=== PATIENT | female | born 1990 | race Caucasian/White ===

== ENCOUNTER 2021-02-19 11:26 | Emergency (ER) | payer OTHER, SELFPAY ==
[2021-02-19 11:35] VITALS: BP 157/103; PULSE 72; RESP 16; TEMP 36.6; O2SAT 100
--- NOTE | 2021-02-19 11:48 | ED.SKABFB ---
HPI - Skin/Abscess/Foreign Bdy General Chief complaint: Skin/Abscess/Foreign Body Stated complaint: rash Time Seen by Provider: 02/19/21 11:39 Source: patient and RN notes reviewed Mode of arrival: ambulatory Limitations: no limitations History of Present Illness HPI narrative: Patient presents today complaining of hives since yesterday morning. Patient woke up at times, took Benadryl and then went away. She woke up again this morning at 1:00 and had them and they have been worsening since that time. She took another dose of Benadryl today. Denies shortness of breath or difficulty swallowing. 5 days ago, patient started on Colestid for her IBS-D as well as omeprazole for GERD. Other than this, she has had no new changes in her products at home. MD complaint: rash Related Data Home Medications Medication Instructions Recorded Confirmed colestipol PO 02/19/21 omeprazole 02/19/21 Allergies Allergy/AdvReac Type Severity Reaction Status Date / Time No Known Allergies Allergy Uncoded 03/25/19 08:32 Review of Systems Review of Systems: CONSTITUTIONAL: Denies body aches, fever, chills, or sweats. EYES: Denies visual changes, redness, or discharge. ENT: Denies rhinorrhea, congestion, sore throat, or otalgia. CARDIOVASCULAR: Denies chest pain, palpitations, or edema. RESPIRATORY: Denies cough or dyspnea. GASTROINTESTINAL: Denies abdominal pain, nausea, vomiting, or diarrhea. GENITOURINARY: Denies dysuria or hematuria. SKIN: Pruritic rash MUSCULOSKELETAL: Denies back pain, joint pain, or myalgia. NEUROLOGIC: Denies headache, numbness, tingling, or weakness. PSYCH: Denies depression or anxiety. [facility] Past Medical History Medical History (Updated 02/19/21 @ 11:53 by Addie Hitchcock, [facility], ) GERD (gastroesophageal reflux disease) Irritable bowel syndrome Comments At time of signature, I have reviewed and agree with nursing past medical, surgical, social and family history unless otherwise noted. Please see nursing chart for further information. There is no relevant family history pertinent to the presenting complaint Exam Narrative: GENERAL: Well-appearing, well-nourished, and in no acute distress. HEAD: Normocephalic, atraumatic. EYES: EOMI. No redness or drainage. Conjunctivae normal. ENT: Mucous membranes pink and moist. Throat normal. Uvula midline. NECK: Normal AROM. Supple. No lymphadenopathy. CHEST: No respiratory distress. Clear to auscultation. HEART: Regular rate and rhythm. No murmur appreciated. Normal peripheral pulses. EXTREMITIES: Normal range of motion. No edema. SKIN: Warm, dry. Capillary refill normal. Normal skin turgor. Urticarial rash to bilateral legs, arms, back NEURO: No focal deficits. Alert and oriented x3. Gait steady. PSYCH: Normal affect. No signs of depression or anxiety. Course Vital Signs Vital signs: Vital Signs Temperature 98 F 02/19/21 11:35 Pulse Rate 72 02/19/21 11:35 Respiratory Rate 16 02/19/21 11:35 Blood Pressure 157/103 H 02/19/21 11:35 Pulse Oximetry 100 02/19/21 11:35 Temperature 98 F 02/19/21 11:35 Pulse Rate 72 02/19/21 11:35 Respiratory Rate 16 02/19/21 11:35 Blood Pressure 157/103 H 02/19/21 11:35 Pulse Oximetry 100 02/19/21 11:35 Reviewed. Pt has been instructed to follow up with her PCP regarding her elevated blood pressure today. MDM - Skin/Abscess/Foreign Bdy Differential Diagnosis Differential diagnosis: Likely abscess of skin or subcutaneous tissue, urticaria, allergic reaction to drug, eczema, insect bites and contact dermatitis Critical Care Time Critical Care Time Critical Care Time: No Discharge Plan Discharge Clinical Impression: Allergic reaction to drug Qualifiers: Encounter type: initial encounter Qualified Code(s): T78.40XA - Allergy, unspecified, initial encounter Patient Disposition: Home, Self-Care Condition: Stable Instructions: Dermatitis (ED) Additional Instructions:
== END 2021-02-19 11:58 | disposition home or self-care (01) ==
PROVIDERS: Emergency Provider Nurse Practitioner; PCP Family Medicine
DX: T78.40XA Allergy, unspecified, initial encounter (principal); K21.9 Gastro-esophageal reflux disease without esophagitis
CPT/HCPCS: 99213; G0463

== ENCOUNTER 2022-01-11 18:25 | Emergency (ER) | payer OTHER, SELFPAY ==
[2022-01-11 18:32] VITALS: BP 173/104; PULSE 96; RESP 16; TEMP 37.1; O2SAT 98
--- NOTE | 2022-01-11 18:45 | ED.GENADULT ---
HPI - General Adult General Chief complaint: Skin/Abscess/Foreign Body Stated complaint: bump on right side of face Time Seen by Provider: 01/11/22 18:45 Source: patient, RN notes reviewed and old records reviewed Mode of arrival: ambulatory Limitations: no limitations History of Present Illness HPI narrative: 31 year old female presents to [facility] with complaint of swelling to the right side of her face on Saturday with area increasingly swollen and painful. Patient reports that she saw dentist today and was told that she had no dental issues causing her swelling and pain. Patient states history of some right ear problems but no evidence of otitis media or externa noted. Patient denies any difficulty with her breathing or with swallowing with no Aditya angina or trismus noted.Patient denies any fevers, chills or sweats. MD complaint: swelling and pain to right side of face and upper cheek Treatments prior to arrival: NSAID and other (Tylenol) Related Data Home Medications Medication Instructions Recorded Confirmed clonazepam 0.5 mg tablet 0.5 mg PO DAILY 01/11/22 01/11/22 fluoxetine 20 mg capsule 20 mg PO DAILY 01/11/22 01/11/22 omeprazole 40 mg capsule,delayed 40 mg PO DAILY 01/11/22 01/11/22 release Allergies Allergy/AdvReac Type Severity Reaction Status Date / Time No Known Allergies Allergy Verified 01/11/22 18:38 Review of Systems Review of Systems: CONSTITUTIONAL: Denies fever, chills, or sweats. EYES: Denies visual changes, redness, or discharge. ENT: Denies rhinorrhea, congestion, sore throat, or otalgia. Positive for swelling to right face and upper cheek with pain CARDIOVASCULAR: Denies chest pain, palpitations, or edema. RESPIRATORY: Denies cough or dyspnea. Denies any difficulty with swallowing GASTROINTESTINAL: Denies abdominal pain, nausea, vomiting, or diarrhea. GENITOURINARY: Denies dysuria or hematuria. SKIN: Denies rash or itching. MUSCULOSKELETAL: Denies back pain, joint pain, or myalgia. NEUROLOGIC: Denies headache, numbness, or weakness. PSYCHIATRIC: Positive history of anxiety or depression. All systems reviewed & are unremarkable except as noted in HPI and below [facility] Past Medical History Medical History (Updated 01/11/22 @ 19:37 by Alayna Ley NP) Anxiety and depression Fatty liver GERD (gastroesophageal reflux disease) Hearing loss in right ear Irritable bowel syndrome Surgical History Surgical History (Updated 01/11/22 @ 19:33 by Alayna Ley NP) History of ear surgery right Social History Social History (Updated 01/11/22 @ 18:48 by Alayna Ley NP) Smoking status: Never smoker Alcohol intake: current Alcohol use details: ? Substance use type: does not use Living arrangements: with family Gender identity (if verbalized by the patient): Female Comments At time of signature, agree with nursing past medical, surgical, social and family history. There is no relevant family history pertinent to the presenting complaint Exam Narrative: GENERAL: Well-appearing, well-nourished, and in no acute distress. HEAD: Normocephalic, atraumatic. EYES: PERRLA and EOMI. ENT: Nares clear, no rhinorrhea or epistaxis. Mucous membranes moist.TM's normal with good light reflex, some scar tissue noted. throat pink with no lesions exudates or swelling, right side of face and upper cheek swollen and painful, some firmness of tissue noted, no difficulty with swallowing , no Aditya angina or trismus noted. NECK: Supple.no lymphadenopathy CHEST: Clear to auscultation. No respiratory distress.SAO2 98% on room air HEART: Regular rate and rhythm. No murmur heard. Normal peripheral pulses. ABDOMEN: Soft, nontender, nondistended, normal active bowel sounds. EXTREMITIES: Normal range of motion. No edema. SKIN: Warm, dry, no rash. NEURO: No focal deficits. Alert and oriented x3. Course Course Level of Care: Express Care Visit Vital Signs Vital signs: Vital Signs
[2022-01-11 19:20] VITALS: BP 140/90
== END 2022-01-11 19:20 | disposition home or self-care (01) ==
PROVIDERS: Emergency Provider Registered Nurse; PCP Family Medicine
DX: K11.21 Acute sialoadenitis (principal); K21.9 Gastro-esophageal reflux disease without esophagitis; K76.0 Fatty (change of) liver, not elsewhere classified; F41.9 Anxiety disorder, unspecified; F32.A Depression, unspecified
CPT/HCPCS: 99213; G0463

== ENCOUNTER 2022-01-16 16:40 | Emergency (ER) | payer OTHER, SELFPAY ==
[2022-01-16 16:51] VITALS: BP 161/91; PULSE 84; RESP 20; TEMP 36.8; O2SAT 99
--- NOTE | 2022-01-16 17:33 | ED.GENADULT ---
HPI - General Adult General Chief complaint: Ear Stated complaint: Pain in right ear and throat Source: patient Mode of arrival: ambulatory Limitations: no limitations History of Present Illness HPI narrative: Patient presents for evaluation of right-sided ear pain. She was seen at [facility] on 01/11/2022 with reports of right-sided facial swelling. She seen her dentist prior to that presentation was told that it was not related to any abnormalities related to her teeth. She was diagnosed with sialoadenitis was given prescriptions for Augmentin and prednisone. She has been taking these as directed. Swelling and pain in the right side of her face are markedly improved. Two days ago she noted pain in her right ear. She has chronic hearing problems and has hearing aids. She is not wearing them today. She states she was seen by her equity structurer about one month ago and was told that her hearing in her right ear has markedly declined. She is trying to get in to see ENT but does not have an appt until next month. She states she has a hx of tympanostomy tubes and tympanoplasty. She developed a sore throat around same time as right sided ear pain. Fever, chills, shortness of breath, trismus, problems handling secretions. She is taking tylenol and ibuprofen for her symptoms. She has also been sucking on lemonhead candy. No additional complaints or concerns. Related Data Home Medications Medication Instructions Recorded Confirmed clonazepam 0.5 mg tablet 0.5 mg PO DAILY 01/11/22 01/16/22 fluoxetine 20 mg capsule 20 mg PO DAILY 01/11/22 01/16/22 omeprazole 40 mg capsule,delayed 40 mg PO DAILY 01/11/22 01/16/22 release Allergies Allergy/AdvReac Type Severity Reaction Status Date / Time No Known Allergies Allergy Verified 01/16/22 16:59 Review of Systems Review of Systems: CONSTITUTIONAL: Denies fever, chills, or sweats. EYES: Denies visual changes, redness, or discharge. ENT:Reports sore throat and right sided ear pain. Reports chronic hearing impairments with worsening hearing in right ear in the past month. CARDIOVASCULAR: Denies chest pain, palpitations, or edema. RESPIRATORY: Denies cough or dyspnea. GASTROINTESTINAL: Denies abdominal pain, nausea, vomiting, or diarrhea. GENITOURINARY: Denies dysuria or hematuria. SKIN: Denies rash or itching. MUSCULOSKELETAL: Denies back pain, joint pain, or myalgia. NEUROLOGIC: Denies headache, numbness, dizziness, or weakness. PSYCHIATRIC: Denies anxiety or depression. [facility] Past Medical History Medical History Anxiety and depression Fatty liver GERD (gastroesophageal reflux disease) Hearing impairment Hearing loss in right ear Irritable bowel syndrome Surgical History Surgical History History of ear surgery right History of tympanoplasty History of tympanostomy tube placement Family History Family History Mother Family history non-contributory Social History Social History Smoking status: Never smoker Alcohol intake: current Alcohol use details: ? Substance use type: does not use Gender identity (if verbalized by the patient): Female Exam Narrative: GENERAL: Well-appearing, well-nourished, and in no acute distress. HEAD: Normocephalic, atraumatic. EYES: PERRLA and EOMI. ENT: Nares clear, no rhinorrhea or epistaxis. Mucous membranes moist. Oropharynx without tonsillar hypertrophy exudate or other lesions. There is mild erythema and scarring noted to bilateral eardrums NECK: Supple without any swelling CHEST: Clear to auscultation. No respiratory distress. No wheezes rales or rhonchi HEART: Regular rate and rhythm. No murmur heard. Normal peripheral pulses. ABDOMEN: Soft, nontender, nondistended, normal
== END 2022-01-16 17:37 | disposition home or self-care (01) ==
PROVIDERS: Emergency Provider Nurse Practitioner; PCP Family Medicine
DX: H92.01 Otalgia, right ear (principal); J02.9 Acute pharyngitis, unspecified; F41.9 Anxiety disorder, unspecified; F32.A Depression, unspecified; K21.9 Gastro-esophageal reflux disease without esophagitis; K76.0 Fatty (change of) liver, not elsewhere classified
CPT/HCPCS: 99213; G0463

== ENCOUNTER 2023-05-13 08:27 | Emergency (ER) | payer OTHER, SELFPAY ==
[2023-05-13 08:34] VITALS: BP 154/97; PULSE 99; RESP 20; TEMP 36.8; O2SAT 97
--- NOTE | 2023-05-13 08:54 | ED.EAR ---
HPI - Ear Problem General Chief complaint: Ear Stated complaint: Right Ear Pain Time Seen by Provider: 05/13/23 08:58 Source: patient and RN notes reviewed Mode of arrival: ambulatory Limitations: no limitations History of Present Illness HPI Narrative: 33-year-old female presents concern for right ear pain started yesterday. She reports a history of ear infections. She reports chronic sinus problems. She reports she has a tympanostomy tube. She has not noticed any drainage from the ear. MD Complaint: ear pain Related Data Home Medications Medication Instructions Recorded Confirmed clonazepam 0.5 mg tablet 0.5 mg PO DAILY 01/11/22 05/13/23 fluoxetine 20 mg capsule 20 mg PO DAILY 01/11/22 05/13/23 omeprazole 40 mg capsule,delayed 40 mg PO DAILY 01/11/22 05/13/23 release Allergies Allergy/AdvReac Type Severity Reaction Status Date / Time No Known Allergies Allergy Verified 05/13/23 08:42 Review of Systems Review of Systems: CONSTITUTIONAL: Denies malaise, chills, sweats, or fever. EYES: Denies visual changes, redness, or discharge. ENT: Reports chronic rhinorrhea, congestion. Reports right ear pain CARDIOVASCULAR: Denies chest pain, palpitations, or edema. RESPIRATORY: Denies cough. Denies dyspnea. GASTROINTESTINAL: Denies abdominal pain, nausea, vomiting, diarrhea SKIN: Denies rash or itching. MUSCULOSKELETAL: Denies myalgia. NEUROLOGIC: Denies headache. All systems reviewed & are unremarkable except as noted in HPI and below [facility] Past Medical History Medical History (Updated 05/13/23 @ 09:07 by Kaylah Covarrubias NP) Anxiety and depression Fatty liver GERD (gastroesophageal reflux disease) Hearing impairment Hearing loss in right ear Irritable bowel syndrome Surgical History Surgical History History of ear surgery right History of tympanoplasty History of tympanostomy tube placement Family History Family History Mother Family history non-contributory Social History Social History Smoking status: Never smoker Alcohol intake: current Alcohol use details: ? Substance use type: does not use Living arrangements: with family Gender identity (if verbalized by the patient): Female Comments At time of signature, agree with nursing past medical, surgical, social and family history. There is no relevant family history pertinent to the presenting complaint Exam Narrative: GENERAL: Well-appearing, well-nourished, and in no acute distress. HEAD: Normocephalic EYES: PERRLA, conjunctivae clear ENT: Nares clear, turbinates edematous, clear discharge. Mucous membranes moist. Left TM pearly dominguez with dull light reflex, right TM erythematous and bulging with intact tympanostomy tube noted without drainage; no tragal tenderness. NECK: Supple. No lymphadenopathy CHEST: Clear to auscultation, breath sounds equal. No wheezing, rhonchi, rales, or stridor. No respiratory distress, speaks in full sentences. HEART: Regular rate and rhythm. No murmur heard. SKIN: Warm, dry, no rash. NEURO: Alert and oriented x3. PSYCH: Normal mood and affect Course Course Emergency Course: Patient is aware of diagnosis, understands and agrees to treatment plan. Anticipatory guidance given. Patient agrees to follow-up as directed and is aware of reasons to seek care at the emergency department. Portions of this record may have been created with voice recognition software Level of Care: Express Care Visit Vital Signs Vital signs: Vital Signs Temperature 98.2 F 05/13/23 08:34 Pulse Rate 99 05/13/23 08:34 Respiratory Rate 20 05/13/23 08:34 Blood Pressure 154/97 H 05/13/23 08:34 Pulse Oximetry 97 05/13/23 08:34 Oxygen Delivery Room Air 05/13/23 08:34 Temperature 98.2 F 05/13/23 08:34 Pulse Rate
== END 2023-05-13 09:16 | disposition home or self-care (01) ==
PROVIDERS: Emergency Provider Nurse Practitioner; PCP Family Medicine
DX: H66.91 Otitis media, unspecified, right ear (principal); Z79.899 Other long term (current) drug therapy
CPT/HCPCS: 99213; G0463

== ENCOUNTER 2024-12-19 10:12 | Emergency (ER) | payer OTHER, SELFPAY ==
--- OUTSIDE RECORDS SUMMARY | 2024-12-19 10:14 | XMS_ITS | Clinical Summary ---
Author Organization [address] Address [address] [place] [id number] Care Team Providers Care Turnaround Engineer Name Role Phone Blaine Villarreal MD Primary Care Provid er Allergies Active Allergy Reactions Criticality Noted Date Comments Colestipol Hives Medium 03/03/2021 Dairy - All Forms And Ingredients Diarrhea,Hives Medium 08/07/2021 Shellfish Containing Products Diarrhea,Hives Medium Medications blood-glucose meter (OneTouch Verio Flex meter) miscIndication s:Inadequately controlled diabetes mellitus (HCC) Test blood sugar daily to twice daily 1 each 02/28/20 24 Active blood glucose diagnostic (glucose blood) stripIndicatio ns:Inadequatel y controlled diabetes mellitus (HCC) Test blood sugar daily to twice daily 100 each 02/28/20 24 025 Active lancets miscIndication s:Inadequately controlled diabetes mellitus (HCC) Test blood sugar daily to twice daily 100 each 02/28/20 24 Active alcohol swabs pads, medicatedIndic ations:Inadequ ately controlled diabetes mellitus (HCC) Test blood sugar daily to twice daily 100 each 02/28/20 24 Active OneTouch Delica Plus Lancet 33 gauge misc USE TO TEST BLOOD SUGAR DAILY TO TWICE DAILY 04/10/20 24 Active gabapentin (NEURONTIN) 300 mg capsule Take 1 capsule (300 mg total) by mouth 3 (three) times a day 90 capsule 5 08/25/19 25 025 Active traZODone (DESYREL) 50 mg tabletIndicati ons:Other insomnia TAKE 1 TO 2 TABLETS(50 TO 100 MG) BY MOUTH EVERY NIGHT NEEDED FOR SLEEP 60 tablet 5 08/26/19 25 Active clonazePAM (KlonoPIN) 0.5 mg tabletIndicati ons:Generalize d anxiety disorder with panic attacks TAKE 1/2 TO 1 TABLET(0.25 TO 0.5 MG) BY MOUTH TWICE DAILY NEEDED FOR ANXIETY 30 tablet 09/01/19 25 Active albuterol HFA (PROVENTIL HFA,VENTOLIN HFA,PROAIR HFA) 90 mcg/actuation inhalerIndicat ions:Shortness of breath Inhale 2 puffs every 4 (four) hours as needed for wheezing or shortness of breath 1 each 10/01/19 25 Active FLUoxetine (PROzac) 40 mg capsuleIndicat ions:Generaliz ed anxiety disorder with panic attacks TAKE 1 CAPSULE(40 MG) BY MOUTH DAILY 90 capsule 10/06/19 25 Active semaglutide (Ozempic) 1 mg/dose (4 mg/3 mL) pen injector injectionIndic ations:Inadequ ately controlled diabetes mellitus (HCC) Inject 1 mg under the skin once a week 3 mL 2 10/13/19 25 Active medroxyPROGEST ERone (PROVERA) 10 mg tablet Take 1 tablet (10 mg total) by mouth daily 10 tablet 11 10/20/19 25 Active naproxen (NAPROSYN) 500 mg tablet Take 1 tablet (500 mg total) by mouth 2 (two) times a day as needed for pain (pain) 30 tablet 11/21/19 25 Active cyclobenzaprin e (FLEXERIL) 10 mg tablet Take 1 tablet (10 mg total) by mouth 2 (two) times a day as needed for muscle spasms 60 tablet 11/21/19 25 Active carbidopa-levo dopa (SINEMET) 25-100 mg per tabletIndicati ons:Restless legs syndrome TAKE 1 TABLET BY MOUTH EVERY NIGHT 30 tablet 2 12/01/19 25 Active carbidopa-levo dopa (SINEMET) 25-100 mg per tabletIndicati ons:Restless legs syndrome TAKE 1 TABLET BY MOUTH EVERY NIGHT 30 tablet 5 05/18/20 24 025 Discontinued amoxicillin-cl avulanate (AUGMENTIN) 875-125 mg per tablet Take 1 tablet by mouth 2 (two) times a day for 10 days 20 tablet 11/21/19 25 025 Active Problems Problem Noted Date Diagnosed Date Snoring 07/16/2023 Assessment & Plan (07/16/2023 9:13 AM FILM WRITER): The patient presents with snoring and excessive daytime hypersomnia. I have recommended proceeding with a nocturnal polysomnogram with a split night protocol if necessary and no MSLT. She will follow up here in 3 months. Epistaxis 06/21/2023 Chronic tympanomastoiditis, right 06/19/2022 Generalized abdominal pain 05/07/2022 Assessment & Plan (05/07/2022 1:04 PM FILM WRITER): Lower abdominal pain for the past 5-6 years, getting progressively worse, weekly, sometimes sharp other times dull, improves with BM, lasts for hours, associated with diarrhea. EGD and colonoscopy [place] [address] Sahu as above. Was diagnosed with IBS. Patient here for 2nd opinion. -avoid NSAIDs -continue PPI daily -schedule EGD -The risks (risks of bleeding, infection, perforation requiring surgery, missed polyps/cancer, dental injury, aspiration pneumonia, anesthesia complications such as drug reaction and cardiopulmonary complications including rare chance of ), benefits, and alternatives of the planned procedure were explained to the patient who understands and consents to having procedure done. Diarrhea 05/07/2022 Assessment & Plan (05/07/2022 1:01 PM FILM WRITER): Has over 10 BM/day, mainly in the mornings. Tried low FODMAP diet, states made bloating worse. Trial of probiotics, not sure if it helped. Colonoscopy [address] Sahu as above. SIBO testing negative in November of 2021. -we will order labs and stool studies for further evaluation -we will repeat colonoscopy to evaluate terminal ileum -obtain prior GI records Gastroesophageal reflux disease without esophagi tis 05/07/2022 Assessment & Plan (05/07/2022 1:02 PM FILM WRITER): Chronic heartburn, worsening despite omeprazole 40 mg p.o. daily. Takes Tums as needed. -EGD as above -continue PPI daily -RECOMMENDATIONS given include: anti-reflux maneuvers, Avoid acidic foods like oranges and tomatoes., avoidance of spicy foods, avoid eating 3-4 hours before bed, elevation of the head of the bed, and weight loss Right ear pain 05/04/2022 Assessment & Plan (05/04/2022 10:34 PM FILM WRITER): CT Temporal bone Plan Otology referral based on CT results Warm compresses to right sided of neck and jaw, soft foods Chronic otitis media of right ear with effusion 02/16/2022 Assessment & Plan (05/04/2022 2:05 PM FILM WRITER): CT Temporal bone Plan Otology referral based on CT results Warm compresses to right sided of neck and jaw, soft foods Assessment & Plan (02/16/2022 2:32 PM CDT): Cefdinir twice daily with a meal Flonase 2 sprays into each nostril while looking down over the sink, do not sniff in or blow nose after use for at least 30 minutes daily Call if no improvement in one month Conductive hearing loss, bilateral 02/16/2022 Assessment & Plan (02/16/2022 2:32 PM CDT): Cefdinir twice daily with a meal Flonase 2 sprays into each nostril while looking down over the sink, do not sniff in or blow nose after use for at least 30 minutes daily Call if no improvement in one month Encounters Date Type Department Care Team Description 11/20/2024 10:45 AM CDT Office Visit [facility] [place] [address] [place] [phone] Dee Ordoñez, [place] Acute bilateral thoracic back pain (Primary Dx); Chronic otitis media of right ear with effusion; Generalized anxiety disorder with panic attacks 10/26/2024 Results Follow-Up [address] [phone] Addie Aguilar, Pap and High Risk HPV and Genotyping (Cytology Component) 10/21/2024 8:00 AM CDT Telemedicine [facility] [address] [place] [phone] Beronica Morel NP Anxiety (Primary Dx); Medication management 10/19/2024 11:05 AM CDT - 10/19/2024 11:59 PM CDT Hospital Encounter [facility] [address] [facility] [address] [place] [phone] Screen for sexually transmitted diseases; Screening for malignant neoplasm of cervix Discharge Disposition: Discharge to home or self care 10/19/2024 10:30 AM CDT Office Visit [facility] [address] [place] [phone] Addie Aguilar DO Encounter for annual routine gynecological examination (Primary Dx); Screen for sexually transmitted diseases; Screening for malignant neoplasm of cervix; PCOS (polycystic ovarian syndrome); Sexual dysfunction 10/19/2024 Patient Self-Triage [facility] [address] [place] [phone] Mychart, Generic Provider 10/12/2024 Patient Self-Triage [facility] [address] [place] [phone] Mychart, Generic Provider 10/12/2024 Patient Self-Triage [facility] [address] [place] [phone] Mychart, Generic Provider 10/05/2024 10:00 AM CDT Telemedicine [facility] [address] [place] [phone] Irma Ch NP Pneumonia of left upper lobe due to infectious organism (Primary Dx); Leukocytosis, unspecified type; Acute suppurative otitis media of both ears without spontaneous rupture of tympanic membranes, recurrence not specified; Former cigarette smoker 10/03/2024 7:38 AM CDT - 10/03/2024 11:23 AM CDT Emergency [facility] Emergency Department [address] [place] [address] Krystyna Duggan MD Pneumonia of left upper lobe due to infectious organism (Primary Dx); Leukocytosis, unspecified type Discharge Disposition: Discharge to home or self care 09/30/2024 2:30 PM CDT Office Visit [facility] [place] [address] [place] [address] Argenis Bermudez, [place] Acute otitis media (Primary Dx); Acute otitis externa of both ears, unspecified type; Shortness of breath from Last 3 Months Immunizations Immunization Administration Dates Next Due Influenza, Unspecified 03/25/2024(Deferr ed: Patient Refused),03/17/2023(Deferred: Patient Refused),01/26/2022(Deferred: Patient Refused),08/07/2021(Deferred: Patient Refused),03/17/2021(Deferred: Patient Refused),03/03/2021(Deferred: Patient Refused),03/30/2020(Deferred: Patient Refused),03/17/2020(Deferred: Patient Refused),03/17/2020(Deferred: Patient Refused) Pfizer SARS-CoV-2 Monovalent Vaccination (12+ Yrs) PURPLE 10/22/2020,09/27/2020 Tdap 09/29/2022,05/23/2019 Surgical History Surgery Date Site/Laterality Comments TYMPANOSTOMY TUBE PLACEMENT TONSILLECTOMY ADENOIDECTOMY COLONOSCOPY January 2032 TYMPANOSTOMY TUBE PLACEMENT Right UPPER GASTROINTESTINAL ENDOSCOPY Medical History Medical History Date Comments HL (hearing loss) Since i was 2 Dizziness Since the summer GERD (gastroesophageal reflux disease) 2020 Tinnitus Since i was a child Headache Often Depression Anxiety 2009 Mixed conductive and sensorineural hearing loss 1992 Menstrual problem 1999 Neuromuscular disorder (HCC) Neuropathy March 20 2025 Diabetes mellitus (HCC) February 13 2025 Family History Medical History Relation Name Comments Cancer Mother Jovana Cuadra Cancer Mother's Brother 1 Kenrick Viktoriya Cancer Mother's Brother 2 Kenrick Viktoriya Relation Name Status Comments Mother Jovana Cuadra Alive Mother's Brother 1 Kenrick Youssefkadikatlyn Mother's Brother 2 Kenrick Viktoriya Alive Sister Alive Social History Tobacco Use Types Packs/Day Years Used Date Smoking Tobacco: Former Cigarettes 2 2019 Smokeless Tobacco: Never Tobacco Cessation:Counseling Given: Not Answered Alcohol Use Standard Drinks/Week Comments Never 0 (1 standard drink = 0.6 oz pur e alcohol) AUDIT-C Answer Date Recorded Q1: How often do you have a drink containing alcohol? Never 02/28/2024 Q2: How many drinks containi ng alcohol do you have on a typical day when you are drinking? Patient does not drink Q3: How often do you have si x or more drinks on one occasion? Never 02/28/2024 PHQ-2 Answer Date Recorded PHQ-2 Total Score 5 02/25/2024 PHQ-9 Answer Date Recorded PHQ-9 Total Score 17 02/25/2024 Personal Safety Answer Date Recorded Have you ever been in or are you currently in a harmful physical or emotional relationship or is someone making you feel afraid or unsafe? Denies 10/03/2024 Comments No Sex and Gender Information Value Date Recorded Sex Assigned at Not on file Legal Sex Female 12:39 PM FILM WRITER Gender Identity Female 02/20/2021 6:24 PM CDT Sexual Orientation Not on file Occupation Industry Job Start Date Job End Date Not on file Not on file Not on file Not on file Obstetrics History Para Term AB IAB SAB Ectopic Multiple Livin g Live Births 0 0 0 0 0 0 0 0 0 0 0 Last Filed Vital Signs Vital Sign Reading Time Taken Comments Blood Pressure 128/76 11/20/2024 10:47 AM CDT Pulse 114 11/20/2024 10:47 AM CDT Temperature 36.6 C (97.8 F) 11/20/2024 10:47 AM CDT Respiratory Rate 19 11/20/2024 10:47 AM CDT Oxygen Saturation 98% 11/20/2024 10:47 AM CDT Inhaled Oxygen Concentration - - Weight 112.5 kg (248 lb) 11/20/2024 10:47 AM CDT Height 160 cm (5' 3) 11/20/2024 10:47 AM CDT Body Mass Index 43.93 11/20/2024 10:47 AM CDT Plan of Treatment Health Maintenance Due Date Last Done Comments Albumin Creatinine Ratio, Urine 1990 Hepatitis C Screening 1990 Hepatitis B Screening 2007 Pneumococcal vaccine <65 (1 of 2 - PCV) 2008 Lipid Panel 06/28/2024 06/28/2023 Hemoglobin A1C 08/24/2024 02/25/2024 Depression Screening 02/24/2025 02/25/2024, 02/25/2024, 06/20/2023, Additional history exists Dilated Eye Exam 04/03/2025 04/03/2024 Foot Exam 05/04/2025 05/04/2024, 1002/2024, 03/25/2024 Colon Cancer Screening-Colonoscopy 08/15/2025 08/15/2022, 01/12/2021 eGFR 10/03/2025 10/03/2024, 02/15, 06/28/2023, Additional history exists Cervical Cancer Screening 10/19/2025 10/19/2024, 10/2024 Regular Well Visit/Exam 18-10/19/2025 10/19/2024, 12/01/2020, 12/01/2020 DTaP/Tdap/Td Vaccine (3 - Td or Tdap) 09/29/2032 09/29/2022, 05/23/2019 Covid-19 Vaccine Discontinued 10/22/2020, 09/27/2020 HPV Vaccines Aged Out No longer eligi ble based on patient's age to complete this topic Influenza Vaccine Discontinued Varicella Vaccines Discontinued Procedures Procedure Name Priority Date/Time Associated Diagnosis Comments HIGH RISK HPV DNA DETECTION WITH GENOTYPING Routine 10/19/2024 11:05 AM CDT Screening for malignant neoplasm of cervix N. GONORRHOEAE/C. TRACHOMATIS AMPLIFICATION Routine 10/19/2024 11:05 AM CDT Screen for sexually transmitted diseases TRICHOMONAS VAGINALIS PCR Routine 10/19/2024 11:05 AM CDT Screen for sexually transmitted diseases PAP AND HIGH RISK HPV, REFLEX TO GENOTYPING Routine 10/19/2024 10:20 AM CDT Screening for malignant neoplasm of cervix CT CHEST PE W CONTRAST ED 9:32 AM CDT SEPSIS LACTATE WITH REFLEX STAT 10/03/2024 9:15 AM CDT BLOOD CULTURE STAT 10/03/2024 9:15 AM CDT BLOOD CULTURE STAT 10/03/2024 9:15 AM CDT XR CHEST PA LATERAL 2 VIEWS ED 10/03/2024 8:13 AM CDT PROTIME-INR STAT 10/03/2024 7:52 AM CDT EGFR STAT 10/03/2024 7:52 AM CDT DIFFERENTIAL AUTO STAT 10/03/2024 7:5 2 AM CDT TROPONIN T HIGH-SENSITIVITY SERIES (BASELINE, 2HR, 4HR, 6HR) STAT 10/03/2024 7:52 AM CDT COMPREHENSIVE METABOLIC PANEL STAT 10/03/2024 7:52 AM CDT CBC WITH AUTO DIFFERENTIAL STAT 10/03/2024 7:52 AM CDT ECG 12-LEAD STAT 10/03/2024 7:43 AM CDT HM DIABETES EYE EXAM Routine 04/03/2024 HEMOGLOBIN A1C Routine 02/25/2024 10:38 AM CDT Impaired fasting glucose LIPID PANEL Routine 06/28/2023 8:13 AM FILM WRITER Screening for lipid disorders COLONOSCOPY 08/15/2022 8:12 AM FILM WRITER from Last 3 Months or Most Recently Relevant to Health Maintenance Results * High Risk HPV DNA Detection with Genotyping (Molecular component) (10/19/2024 11:05 AM CDT) HPV HR 16 Not Detected Not Detected BJ Comment:Testing performed by : [facility], [address] [facility], [place]., [address] HPV HR 18 Not Detected Not Detected RIVKA CHAIREZ Comment:Testing performed by : [facility], [address] [place] [address]., [id number] HPV HR Non 16/18 Not Detected Not Detected RIVKA CHAIREZ Comment: Interpretive Data Nucleic acid amplification for detection of high-risk Human Papilloma virus (HPV) is performed by the Ap Brent 6800 HPV test. This assay specifically detects HPV-16 and HPV-18 genotypes. The following HPV genotypes are detected as high-risk HPV: HPV-31, 33, 35, ,39, 45, 51, 52, 56, 58, 59, 66, and 68. This assay has been approved by the [place] Food and Drug Administration for detection of HPV in cervical specimens collected by a physician using an endocervical brush/spatula or cervical broom and placed in the ThinPrep Pap Test PreservCyt collection containers. The performance characteristics of this test have been verified by the [facility] Molecular Infectious Disease laboratory. Correlate with separately reported cytology results, as applicable. Interpretive data last revised 22 Testing performed by: [facility], [address] [place] [address]., [id number] Endocervical 10/19/2024 11:0 5 AM CDT 10/20/2024 3:52 PM CDT Narrative RIVKA - 10/21/2024 3:52 AM CDT Clinical history and diagnosis->Liquid-based PAP test with high risk HPV test- Z12.4 Number of vials->1 Testing type->Screening Last menstrual period (date if known)->09/21/24 Addie Aguilar DO LAB BODY FLUIDS AND STO OLS ORDERABLES Final Result RIVKA [id number] [address] Department [place] [address] [facility] * N. gonorrhoeae/C. trachomatis Amplification Thin prep-Endocervical (10/19/2024 11:05 AM CDT) C. trachomatis Not Detected [facility] Comment:Testing performed by : [facility], [address] [place] [address] N. gonorrhoeae Not Detected RIVKA CHAIREZ Comment: Interpretive Data This assay detects Chlamydia trachomatis and Neisseria gonorrhoeae by nucleic acid amplification testing (NAAT). This assay has been cleared by the [place] Food and Drug administration. The performance characteristics of this test have been verified by the [facility] Molecular Infectious Disease laboratory. The performance characteristics of this test have not been evaluated in individuals less than 14 years of age. Current Interpretive Data was last revised on 2023. Testing performed by: [facility], [address] [place]., [address] Thin prep-Endocervica l 10/19/2024 11:05 AM CDT 10/20/2024 3:52 PM CDT Addie Aguilar DO LAB MICROBIOLOGY - GENE RAL ORDERABLES Final Result Performing Organization Address City/State/[facility] Co de Phone Number RIVKA [address] [address] Department [place] [address] [facility] * Trichomonas vaginalis PCR Thin prep-Endocervical (10/19/2024 11:05 AM CDT) [facility] Trichomonas DNA Not Detected [facility] Comment: Interpretive Data This assay detects Trichomonas vaginalis by nucleic acid amplification testing (NAAT). This assay has been cleared by the [place] Food and Drug administration. The performance characteristics of this test have been verified by the [facility] Molecular Infectious Disease laboratory. The performance of this test has not been evaluated in individuals less than 18 years of age. Current Interpretive Data was last revised on 2023. Testing performed by: [facility], [address] [place]., [address] Thin prep-Endocervica l 10/19/2024 11:05 AM CDT 10/20/2024 3:52 PM CDT Addie Aguilar DO LAB MICROBIOLOGY - GENE RAL ORDERABLES Final Result RIVKA [facility] Department [place] [address] [facility] * Pap and High Risk HPV and Genotyping (Cytology Component) (10/19/2024 10:20 AM CDT) Thin prep (Pap test) 10/19/2024 10:20 AM CDT 10/19/2024 10:20 AM CDT Narrative PATHOLOGY CH - 10/23/2024 10:03 AM CDT [facility] Department of Pathology [address] [place] [id number] Final Report with Addendum Note to Patients: This report may contain a detailed description of human tissue sent by a health care provider to the laboratory for pathologic evaluation. The content of this report is essential for diagnosis and may provide important critical findings. This information may be unfamiliar to patients to review without a medical professional present. It is advised that the patient review this report in the presence of a health care provider who can answer questions and explain the details. Patient Name: KASI ADLER Address: [address] [place] [address] [place] [address] Gender: F : 1990 (Age: 34) Service: Location: [facility] : [id number] Hospital #: [id number] Patient Type: [facility] SPECIMEN Taken: 10/19/2024 Received: 10/19/2024 Accessioned:: 10/20/2024 Reported: 10/23/2024 Physician(s): Narayan Ferguson D.O. Diagnosis: SOURCE OF SPECIMEN SCREENING THIN PREP IMAGED PAP w/ HPV: STATEMENT OF ADEQUACY - Specimen satisfactory for interpretation; endocervical/transformation zone component absent or insufficient GENERAL CATEGORIZATION: - Negative for intraepithelial lesion or malignancy JULIO Licona(ASCP) Report Electronically Reviewed and Signed Out By JULIO Licona(ASCP) 10/23/2024 10:03:57Addenda: HPV Test Interpretation (Normal-Negative for High Risk HPV) HPV HR 16- Not detected HPV HR 18-Not detected HPV HR non 16/18- Not detected Interpretive Data Nucleic acid amplification for detection of high-risk Human Papilloma virus (HPV) is performed by the Ap Brent 6800 HPV test. This assay specifically detects HPV- 16 and HPV-18 genotypes. The following HPV genotypes are detected as high-risk HPV: HPV-31, 33, 35, 39, 45, 51, 52, 56, 58, 59, 66, and 68. This assay has been approved by the [place] Food and Drug Administration for detection of HPV in cervical specimens collected by a physician using an endocervical brush/spatula or cervical broom and placed in the ThinPrep Pap Test PreservCyt collection containers. The performance characteristics of this test have been verified by the [facility] Molecular Infectious Disease laboratory. Correlate with reported cytology results, as applicable. Interpretive data last revised 22 JULIO Licona(ASCP)Report Electronically Reviewed and Signed Out By JULIO Licona(ASCP) 10/21/2024 09:40:54 Specimen(s) Received: A: SCREENING THIN PREP IMAGED PAP w/ HPV Clinical History: Last Menstrual Period: 09/21/24 The Pap test is a screening test used to aid in the detection of cervical cancer and its precursors. It should not be the sole means by which malignant and premalignant lesions are diagnosed. Both false negative and false positive results may occur. It also has poor sensitivity for the detection of endometrial lesions and should not be used to evaluate suspected endometrial abnormalities. For these reasons it is most important to obtain Pap tests at regular intervals. The performance characteristics of some immunohistochemical stains, fluorescence in-situ hybridization tests and immunophenotyping by flow cytometry cited in this report (if any) were determined by the Surgical Pathology Department at [facility] as part of an ongoing senior software quality engineer program and in compliance with federally mandated regulations drawn from the Clinical Laboratory Improvement Act of 1988 (CLIA '88). Some of these tests rely on the use of analyte specific reagents and are subject to specific labeling requirements by the [place] Food and Drug Administration. Such diagnostic tests may only be performed in a facility that is certified by the Department of Health and Human Services as a high complexity laboratory under CLIA '88. The FDA has determined that such clearance or approval is not necessary. This test is used for clinical purposes. It should not be regarded as investigational or for research. Nevertheless, federal rules concerning the medical use of analyte specific reagents require that the following disclaimer be attached to the report: This test was developed and its performance characteristics determined by the Surgical Pathology Department [facility]. It has not been cleared or approved by the U. S. Food and Drug Administration. Addienelda Nelson Lauren LEDESMA LAB CYTOLOGY ORDERABLES Final Result PATHOLOGY [address] [place] [address] * CT Chest PE (CTA) W Contrast (10/03/2024 9:32 AM CDT) Anatomical Region Laterality Modality Body N/A Computed Tomogra phy 10/03/2024 10:1 4 AM CDT Narrative 10/03/2024 10:22 AM CDT EXAM DESCRIPTION: CT CHEST PE (CTA) W CONTRAST REASON FOR STUDY: Pulmonary embolism (PE) suspected, high prob Chest tightness today TECHNIQUE: CT angiogram of the chest performed with intravenous contrast using helical scanning technique with dynamic intravenous contrast injection. Reconstructed coronal and sagittal MPR images reviewed. All images stored on PACS. 3D MIP images rendered on scanning unit and reviewed at time of interpretation. Automated exposure control was used as a dose optimization technique for this examination. CONTRAST TYPE/DOSE: 100mL of IOVERSOL 350 MG IODINE/ML INTRAVENOUS SYRINGE injected via intravenous COMPARISON: Chest radiograph 10/03/2024 FINDINGS: VASCULATURE: No identified pulmonary emboli. No thoracic aortic aneurysm or evidence of dissection. LUNGS: The central airways are clear. Opacities throughout the left upper lobe are consistent with pneumonia. PLEURA: No effusion. No pneumothorax. MEDIASTINUM/ARBEN: No identified masses or abnormal nodes. HEART: Heart size is normal with no pericardial effusion. AXILLA: No adenopathy. CHEST WALL: No masses. No subcutaneous air. HARDWARE/LINES/TUBES: None. UPPER ABDOMEN: No significant abnormality. MUSCULOSKELETAL: No significant abnormality. OTHER: No significant abnormality. IMPRESSION: No evidence of pulmonary embolism. Left upper lobe pneumonia. THIS IS AN ELECTRONICALLY VERIFIED FINAL REPORT 10/03/2024 10:22 AM - Electronically signed by Blayne Fonseca M.D. KR: TESSY Report ID: [id number] Reading Location: [id number] Procedure Note Blayne Fonseca MD - 10/03/2024 EXAM DESCRIPTION: CT CHEST PE (CTA) W CONTRAST REASON FOR STUDY: Pulmonary embolism (PE) suspected, high prob Chest tightness today TECHNIQUE: CT angiogram of the chest performed with intravenous contrastusing helical scanning technique with dynamic intravenous contrast injection. Reconstructed coronal and sagittal MPR images reviewed. All images storedon PACS. 3D MIP images rendered on scanning unit and reviewed at time of interpretation. Automated exposure control was used as a doseoptimization technique for this examination. CONTRAST TYPE/DOSE: 100mL of IOVERSOL 350 MG IODINE/ML INTRAVENOUSSYRINGE injected via intravenous COMPARISON: Chest radiograph 10/03/2024 FINDINGS: VASCULATURE: No identified pulmonary emboli. No thoracic aorticaneurysm or evidence of dissection. LUNGS: The central airways are clear. Opacities throughout the leftupper lobe are consistent with pneumonia. PLEURA: No effusion. No pneumothorax. MEDIASTINUM/ARBEN: No identified masses or abnormal nodes. HEART: Heart size is normal with no pericardial effusion. AXILLA: No adenopathy. CHEST WALL: No masses. No subcutaneous air. HARDWARE/LINES/TUBES: None. UPPER ABDOMEN: No significant abnormality. MUSCULOSKELETAL: No significant abnormality. OTHER: No significant abnormality. IMPRESSION: No evidence of pulmonary embolism. Left upper lobe pneumonia. THIS IS AN ELECTRONICALLY VERIFIED FINAL REPORT 10/03/2024 10:22 AM - Electronically signed by Blayne Fonseca M.D. KR: TESSY Report ID: [id number] Reading Location: [id number] Krystyna Duggan MD [facility] [place] PROCEDURES F inal Result * Sepsis Lactate w/ Reflex (10/03/2024 9:15 AM CDT) Sepsis Lactate 1.4 0.7 - 2.0 mmol/L Blood 10/03/2024 9:15 AM CDT 10/03/2024 9:20 AM CDT Krystyna Duggan MD LAB BLOOD ORDERABLE S Final Result R[facility]KA [facility] ([place]) 1 [facility] Department [place] [address] * Blood culture Blood Peripheral (10/03/2024 9:15 AM CDT) Report Final Report: No growth Comment:Testing performed by : [facility], [address] [facility], [place]., [address] Blood (Peripheral) 10/03/2024 9:15 AM CDT 10/03/2024 11:38 AM CDT Narrative [facility] ([place]) - 10/07/2024 12:00 PM CDT From a different site than #1. Draw Blood cultures before administration of Antibiotics Collection->Peripheral 1. Blood cultures are incubated for 4 days on a continuously monitored blood culture system. The first report of a negative culture is issued within 24 hours of receipt of the specimen in the laboratory. 2. Positive culture results are reported as soon as they are detected. 3. The most important factor for detection of microbes in the setting of bloodstream infection is the volume of blood submitted for culture. Failure to collect an optimal blood volume can result in false negative blood cultures. 4. For pediatric patients, the recommended blood volume to collect follows a weight based strategy. See the electronic test catalog for collection instructions. 5. For positive blood cultures, a rapid molecular test may be performed for organism identification using the brent ePlex blood culture identification panel for gram positive (BCID-GP) and gram negative (BCID-GN) organisms. This nucleic acid amplification test detects microbial DNA in positive blood culture broth. This assay has been cleared by the [place] Food and Drug Administration and its performance characteristics have been verified by the [facility]. For questions about this culture, contact the Microbiology Laboratory at [phone]. Interpretive data was last revised on 24. Krystyna Duggan MD LAB MICROBIOLOGY - GENERAL ORDERABLES Final Result Performing Organization Address City/[facility]/ZIP Co de Phone Number R[facility]KA [facility] ([place]) 1 [facility] [employer] [place] [address] * Blood culture Blood Peripheral (10/03/2024 9:15 AM CDT) Report Final Report: No growth Comment:Testing performed by : [facility], [address] [place]., [address] Blood (Peripheral) 10/03/2024 9:15 AM CDT 10/03/2024 11:38 AM CDT Narrative [facility] ([place]) - 10/07/2024 12:00 PM CDT Draw Blood cultures before administration of Antibiotics Collection->Peripheral 1. Blood cultures are incubated for 4 days on a continuously monitored blood culture system. The first report of a negative culture is issued within 24 hours of receipt of the specimen in the laboratory. 2. Positive culture results are reported as soon as they are detected. 3. The most important factor for detection of microbes in the setting of bloodstream infection is the volume of blood submitted for culture. Failure to collect an optimal blood volume can result in false negative blood cultures. 4. For pediatric patients, the recommended blood volume to collect follows a weight based strategy. See the electronic test catalog for collection instructions. 5. For positive blood cultures, a rapid molecular test may be performed for organism identification using the brent ePlex blood culture identification panel for gram positive (BCID-GP) and gram negative (BCID-GN) organisms. This nucleic acid amplification test detects microbial DNA in positive blood culture broth. This assay has been cleared by the [place] Food and Drug Administration and its performance characteristics have been verified by the [facility]. For questions about this culture, contact the Microbiology Laboratory at [phone]. Interpretive data was last revised on 24. Krystyna Duggan MD LAB MICROBIOLOGY - GENERAL ORDERABLES Final Result RIVKA MORIN) 1 [facility] [employer] [place] [address] * XR Chest PA Lateral 2 Views (10/03/2024 8:13 AM CDT) Anatomical Region Laterality Modality Body, Chest N/A Computed Radiogr aphy 10/03/2024 8:29 AM CDT Narrative 10/03/2024 8:32 AM CDT EXAM DESCRIPTION: XR CHEST PA LATERAL 2 VIEWS REASON FOR STUDY: chest pain Pt to the ED with c/o chest tightness that started this morning. Pt reports that she has cough and pain worse with movement and cough. Pt was seen at urgent care for right sided ear infection and was told that her lungs sounds horrible and was given inhaler. Was told to come to ER if developed chest pain. TECHNIQUE: Frontal and lateral radiographic view(s) of the chest. COMPARISON: None available. FINDINGS: LUNGS: No focal opacity, pleural effusion, or pneumothorax. HEART/MEDIASTINUM: Cardiac silhouette normal in size. Mediastinal and hilar contours appear normal. LINES/TUBES: None. BONES: No acute osseous abnormality. IMPRESSION: No acute cardiopulmonary abnormality. THIS IS AN ELECTRONICALLY VERIFIED FINAL REPORT 10/03/2024 8:32 AM - Electronically signed by Hiram Kang M.D. MF: SINAN Report ID: [id number] Reading Location: [place] [address] Procedure Note Hiram Kang, DO - 10/03/2024 EXAM DESCRIPTION: XR CHEST PA LATERAL 2 VIEWS REASON FOR STUDY: chest pain Pt to the ED with c/o chest tightness that started this morning. Ptreports that she has cough and pain worse with movement and cough. Pt was seen at urgent care for right sided ear infection and was told that her lungssounds horrible and was given inhaler. Was told to come to ER if developedchest pain. TECHNIQUE: Frontal and lateral radiographic view(s) of the chest. COMPARISON: None available. FINDINGS: LUNGS: No focal opacity, pleural effusion, or pneumothorax. HEART/MEDIASTINUM: Cardiac silhouette normal in size. Mediastinal andhilar contours appear normal. LINES/TUBES: None. BONES: No acute osseous abnormality. IMPRESSION: No acute cardiopulmonary abnormality. THIS IS AN ELECTRONICALLY VERIFIED FINAL REPORT 10/03/2024 8:32 AM - Electronically signed by Hiram Kang M.D. MF: SINAN Report ID: [id number] Reading Location: [place] [address] Krystyna Duggan MD IMG XR PROCEDURES F inal Result * Troponin T high-sensitivity series (baseline, 2hr, 4hr, 6hr) (10/03/2024 7:52 AM CDT) Pathologist [facility] Trop T hs <6 <=14 ng/L Comment: Interpretive Data For further hscTnT resources including the diagnostic algorithm and an aid in interpretation, copy and paste this link: [email or web address].testcatalog.org/show/hsTrop Current Interpretive Data last revised 2020. Blood 10/03/2024 7:52 AM CDT 10/03/2024 7:56 AM CDT Krystyna Duggan MD LAB BLOOD ORDERABLE S Final Result [facility] [place]) 9 [facility] Department [place] [address] * eGFR (10/03/2024 7:52 AM CDT) eGFR >90 >=60 mL/min/1. 73 m2 Comment: Interpretive Data Reference Interval Normal >/= 90 mL/min/1.73m2 Mildly decreased* 60 - 89 mL/min/1.73m2 Mildly to moderately decreased 45 - 59 mL/min/1.73m2 Moderately to severely decreased 30 - 44 mL/min/1.73m2 Severely decreased 15 - 29 mL/min/1.73m2 Kidney Failure < 15 mL/min/1.73m2 *Relative to young adult level Estimated glomerular filtration rate is determined by the 2020 CKD-EPI equation recommended by the National Kidney Foundation (A Unifying Approach to GFR Estimation: Recommendations of the NKF-ASK Task Force on Reassessing the Inclusion of Race in Diagnosing Kidney Disease, JASN 2020). The CKD-EPI equation should not be used for patients with unstable renal function and has not been validated in children and those over 70. Current interpretive data was last reviewed 2021. Blood 10/03/2024 7:52 AM CDT 10/03/2024 7:56 AM CDT us Krystyna Duggan MD LAB BLOOD ORDERABLE S Final Result [facility] ([place]) 1 [facility] Department [place] [address] * (ABNORMAL) Differential, auto (10/03/2024 7:52 AM CDT) Neutrophil abs 14.01(H) 1.50 - 6.50 K/cumm Imm gran abs 0.08 0.00 - 0.10 K/cumm [facility]) Lymphocyte abs 2.67 0.80 - 3.30 K/cumm [facility] ([place]) Monocyte abs 0.57 0.20 - 0.80 K/cumm [facility] ([place]) Eosinophil abs 0.19 0.00 - 0.50 K/cumm [facility] ([place]) Basophil abs 0.05 0.00 - 0.10 K/cumm [facility] ([place]) Neutrophil pct 79.7 % [facility] ([place]) Comment: Interpretive Data Percent cell count reference ranges are not reported, since discordance with absolute values may lead to misinterpretation of CBC data. Current Interpretive Data was last revised on 2017. Imm gran pct 0.5 % [facility] ([place]) Comment: Interpretive Data Percent cell count reference ranges are not reported, since discordance with absolute values may lead to misinterpretation of CBC data. Current Interpretive Data was last revised on 2017. Lymphocyte pct 15.2 % [facility] ([place]) Comment: Interpretive Data Percent cell count reference ranges are not reported, since discordance with absolute values may lead to misinterpretation of CBC data. Current Interpretive Data was last revised on 2017. Monocyte pct 3.2 % [facility] ([place]) Comment: Interpretive Data Percent cell count reference ranges are not reported, since discordance with absolute values may lead to misinterpretation of CBC data. Current Interpretive Data was last revised on 2017. Eosinophil pct 1.1 % [facility] ([place]) Comment: Interpretive Data Percent cell count reference ranges are not reported, since discordance with absolute values may lead to misinterpretation of CBC data. Current Interpretive Data was last revised on 2017. Basophil pct 0.3 % [facility] ([place]) Comment: Interpretive Data Percent cell count reference ranges are not reported, since discordance with absolute values may lead to misinterpretation of CBC data. Current Interpretive Data was last revised on 2017. Blood 10/03/2024 7:52 AM CDT 10/03/2024 7:56 AM CDT us Krystyna Duggan MD LAB BLOOD ORDERABLE S Final Result [facility] ([place]) 1 [facility] Department [place] [address] * (ABNORMAL) CBC with auto differential (10/03/2024 7:52 AM CDT) WBC 17.57(H) 3.80 - 9.90 K/cumm Hgb 13.8 11.9 - 15.5 g/dL [facility]) Hct 42.1 35.6 - 45.5 % [facility] Plt 353 150 - 400 K/cumm [facility] ([place]) MPV 9.4 9.1 - 12.3 fL [facility] RBC 4.88 3.90 - 5.20 M/cumm [facility] ([place] MCV 86.3 81.3 - 96.4 fL [facility] MCH 28.3 27.1 - 33.3 pg [facility]) MCHC 32.8 32.3 - 35.7 g/dL [facility] ([place]) RDW CV 13.3 11.1 - 14.9 % [facility] ([place]) RDW SD 42.4 35.7 - 48.1 fL [facility] ([place]) NRBC abs 0.00 0.00 - 0.01 K/cumm [facility] ([place]) Blood Venous blood specimen / Unknown 10/03/2024 7:52 AM CDT 10/03/2024 7:56 AM CDT Krystyna Duggan MD LAB BLOOD ORDERABLE S Final Result Performing Organization Address City/[facility] Co de Phone Number [facility] ([place]) 1 [facility] [address] * Protime-INR (10/03/2024 7:52 AM CDT) PT 11.2 9.7 - 13.0 sec [facility] ([place]) INR 1.04 0.90 - 1.20 [facility] ([place]) Comment: Interpretive data Oral anticoagulant therapeutic ranges: Venous thromboembolism prophylaxis or treatment: 2.0-3.0 CARDIOLOGY Standard range: 2.0-3.0 High-intensity range: 2.5-3.5 Refer to indication-specific guidelines for appropriate target ranges for prosthetic heart valve replacement. Current interpretive data was last revised on 2019. Blood 10/03/2024 7:52 AM CDT 10/03/2024 8:58 AM CDT Krystyna Duggan MD LAB BLOOD ORDERABLE S Final Result Performing Organization Address City/[facility]/ZIP Co de Phone Number ERICHCLARE VERNON ([place]) 1 [facility] [address] * Comprehensive metabolic panel (10/03/2024 7:52 AM CDT) Sodium 138 135 - 145 mmol/L Potassium, pl 4.1 3.3 - 4.9 mmol/L [facility] Chloride 102 97 - 110 mmol/L [facility] CO2 23 22 - 32 mmol/L [facility] Anion gap 13 2 - 15 mmol/L [facility] BUN 10 6 - 25 mg/dL [facility] ([place]) Creatinine 0.76 0.60 - 1.10 mg/dL [facility] Glucose 121 70 - 199 mg/dL [facility] ([place]) Comment: Interpretive Data Fasting glucose >/= 126 mg/dl is diagnostic for diabetes. Fasting is defined as no caloric intake for at least 8 hours. Fasting glucose between 100 mg/dl to 125 mg/dl is diagnostic of prediabetes. In a patient with classic symptoms of hyperglycemia or hyperglycemic crisis, a random glucose >/= 200 mg/dl is diagnostic for diabetes. In the absence of unequivocal hyperglycemia, results should be confirmed by repeat testing. The classification and Diagnosis of Diabetes Diabetes Care 2021; 46: S19-S40. Current interpretive data was last revised 2022. Calcium 9.2 8.5 - 10.3 mg/dL [facility]) Bilirubin, total <0.2 0.1 - 1.2 mg/dL [facility] ([place] Protein, pl 7.1 6.5 - 8.5 g/dL [facility] ([place]) Albumin 4.1 3.5 - 5.0 g/dL [facility] ([place] Alk phos 90 40 - 130 Units/L [facility] ALT 11 7 - 45 Units/L [facility] AST 16 10 - 45 Units/L [facility] ([place]) Comment:Slightly Hemolyzed S pecimen Blood 10/03/2024 7:5 2 AM CDT 10/03/2024 7:56 AM CDT us Krystyna Duggan MD LAB BLOOD ORDERABLE S Final Result [facility] ([place]) 1 [facility] [place] [address] * ECG 12 lead (10/03/2024 7:43 AM CDT) 10/03/2024 7:43 AM CDT Narrative [facility] - 10/05/2024 6:41 AM CDT Vent Rate: 103 bpm RR Interval: 582 msec MO Interval: 156 msec QRS Duration: 85 msec QT Interval: 337 msec QTC Interval: 396 msec P-R-T [place]: 41 - 50 - 61 degrees IMPRESSION: SINUS TACHYCARDIA POOR R WAVE PROGRESSION ABNORMAL RHYTHM ECG Electronically Signed By: John Field MD Krystyna Duggan MD ECG ORDERABLES Fin al Result [facility] * DIABETES EYE EXAM (04/03/2024) SCRIBED DIABETIC DILATED EYE EXAM Normal [facility] Provider HEALTH MAINTENANCE Final Result * (ABNORMAL) Hemoglobin A1c (02/25/2024 10:38 AM CDT) Hgb A1C 7.5(H) 4.0 - 5.6 % Comment:Testing performed by : [address] [address] Estimated Average Glucose 169 mg/dL RIVKA RICH Comment: The ADA recommends reporting an estimated Average Glucose (eAG) with all Hemoglobin A1c results using the equation derived from a study of 507 normal and diabetic adults. Minority populations were underrepresented and children were not included. (Diabetes Care 31:0395-2693, 2008). The eAG is not equivalent to a fasting glucose. Testing performed by: [facility], [address] [place] [address]., [address] Blood 02/25/2024 10:3 8 AM CDT 02/25/2024 12:08 PM CDT Blaine Villarreal MD LAB BLOOD ORDERABLES Final Result R[facility] [address] [facility] Department [place] [address] * (ABNORMAL) Lipid panel (06/28/2023 8:13 AM FILM WRITER) Cholesterol 209(H) 30 - 199 mg/dL [facility] ([place]) Comment: Interpretive Data Ages < or = 19 years Acceptable: <170 mg/dL Borderline high: 170-199 mg/dL High: >or= 200 mg/dL Ages > or = 20 years Desirable: <200 mg/dL Borderline high: 200-239 mg/dL High: >or= 240 mg/dL Literature References: 1. Expert Panel on Integrated Guidelines for Cardiovascular Health and Risk Reduction in Children and Adolescents. Pediatrics 2011;128:S213 2. NCEP Expert Panel. Circulation 2004;110:227 Current Interpretive Data was last revised on 2018. Testing performed by: [address] [address] Triglycerides 280(H) <=149 mg/dL [facility] ([place]) Comment: Interpretive Data Ages < or = 9 years Acceptable: <75 mg/dL Borderline high: 75-99 mg/dL High: >or= 100 mg/dL Ages 10 to 20 years Acceptable: <90 mg/dL Borderline high: 90-129 mg/dL High: >or= 130 mg/dL Ages > or = 20 years Desirable: <150 mg/dL Borderline high: 150-199 mg/dL High: 200-499 mg/dL Very high: >or= 499 mg/dL Literature References: 1. Expert Panel on Integrated Guidelines for Cardiovascular Health and Risk Reduction in Children and Adolescents. Pediatrics 2011;128:S213 2. NCEP Expert Panel. Circulation 2004;110:227 Current Interpretive Data was last revised on 2018. Testing performed by: [facility], [address] [place] [address]., [address] HDL 36(L) >=40 mg/dL [facility]ON ([place]) Comment: Interpretive Data Ages < or = 19 years Acceptable: >45 mg/dL Borderline low: 40-45 mg/dL Low: <40 mg/dL Ages > or = 20 years Desirable: >or= 60 mg/dL Low: <40 mg/dL Literature References: 1. Expert Panel on Integrated Guidelines for Cardiovascular Health and Risk Reduction in Children and Adolescents. Pediatrics 2011;128:S213 2. NCEP Expert Panel. Circulation 2004;110:227 Current Interpretive Data was last revised on 2018. Testing performed by: [facility], [address] [place] [address]., [address] LDL, calculated 117 <=129 mg/dL [facility] ([place]) Comment: Interpretive Data Ages < or = 19 years Acceptable: <110 mg/dL Borderline high: 110-129 mg/dL High: >or= 130 mg/dL Ages > or = 20 years Optimal: <100 mg/dL Near optimal: 100-129 mg/dL Borderline high: 130-159 mg/dL High: >160 mg/dL Literature References: 1. Expert Panel on Integrated Guidelines for Cardiovascular Health and Risk Reduction in Children and Adolescents. Pediatrics 2011;128:S213 2. NCEP Expert Panel. Circulation 2004;110:227 Current Interpretive Data was last revised on 2018. Testing performed by: [address] [address] Non-HDL Cholesterol 173 mg/dL [facility] ([place]) Comment: Interpretive Data Ages < or = 19 years Acceptable: <120 mg/dL Borderline high: 120-144 mg/dL High: >145 mg/dL Ages > or = 20 years When triglycerides are >200 mg/dL, Non-HDL cholesterol is a secondary target of therapy with treatment goals that are 30 mg/dL greater than the LDL cholesterol target. Literature References: 1. Expert Panel on Integrated Guidelines for Cardiovascular Health and Risk Reduction in Children and Adolescents. Pediatrics 2011;128:S213 2. NCEP Expert Panel. Circulation 2004;110:227 Current Interpretive Data was last revised on 2018. Testing performed by: [address] [address] Chol/HDL ratio 6 ARMINDA VERNON ([place]) Comment:Testing performed by : [address] [address] Blood 06/28/2023 8:13 AM FILM WRITER 06/28/2023 11:53 AM FILM WRITER Blaine Villarreal MD LAB BLOOD ORDERABLES Final Result [facility] ([place]) 1 [facility] Department [place] [address] * COLONOSCOPY (08/15/2022 8:12 AM FILM WRITER) Anatomical Region Laterality Modality Other Narrative Procedure Note Zan Bishop MD - 08/15/2022 8:12 AM CST [facility] END[facility] Patient Name: Kasi Adler Procedure Date: 08/15/2022 8:12 AM Date of : 1990 Admit Type: Outpatient Age: 32 Gender: Female Attending MD: Zan Bishop M.D. Room: [facility] ENDOSCOPY ROOM 06 Note Status: Finalized Procedure: Colonoscopy Indications: Abdominal pain, Chronic diarrhea Referring MD: Blaine Villarreal M.D. Providers: Zan Bishop M.D. Medicines: Monitored Anesthesia Care Complications: No immediate complications. Estimated Blood Loss: Estimated blood loss: none. Procedure: The benefits, risks and alternatives of theprocedure and sedation were discussed and informed consentwas obtained. All questions were answered. Please referto the signed informed consent document in the medical record. The scope was passed under direct vision.The [id number]-[id number] colonoscope was introduced through theanus and advanced to the terminal ileum. The colonoscopy was performed without difficulty. The patient tolerated the procedure well. The quality of thebowel preparation was fair. Scope withdrawal time was 10 minutes. Prep was administered in a split dose. Findings: The perianal and digital rectal examinations were normal. The terminal ileum appeared normal. A 10 mm polyp was found in the descending colon. The polyp wassessile. The polyp was removed with a hot snare. Resection and retrieval were complete. Two polyps were found in the sigmoid colon. The polyps werediminutive in size. These polyps were removed with a cold biopsy forceps.Resection and retrieval were complete. Non-bleeding internal hemorrhoids were found during retroflexion. The hemorrhoids were small. Biopsies for histology were taken with a cold forceps from the right colon and left colon for evaluation of microscopic colitis. The exam was otherwise without abnormality. Impression: - Preparation of the colon was fair. - The examined portion of the ileum was normal. - One 10 mm polyp in the descending colon, removed with a hot snare. Resected and retrieved. - Two diminutive polyps in the sigmoid colon,removed with a cold biopsy forceps. Resected andretrieved. - Non-bleeding internal hemorrhoids. - The examination was otherwise normal. - Biopsies were taken with a cold forceps from the right colon and left colon for evaluation of microscopic colitis. Recommendation: - Patient has a contact number available for emergencies. The signs and symptoms of potential delayed complications were discussed with thepatient. Return to normal activities tomorrow. Written discharge instructions were provided to thepatient. - High fiber diet. - Continue present medications. - Await pathology results. - Repeat colonoscopy in 3 years for surveillance. - Return to GI clinic as previously scheduled. Zan Bishop M.D. Zan Bishop M.D. 08/15/2022 8:44:53 AM . Number of Addenda: 0 Note Initiated On: 08/15/2022 8:12 AM Recognized by the [employer] for promoting quality in endoscopy us Zan Bishop MD ENDOSCOPY PROCEDURES Final Resul t from Last 3 Months or Most Recently Relevant to Health Maintenance Insurance AETNA SIG [id number] AETNA SIG [id number] Care Teams Turnaround Engineer Relationship Specialty Start Date End Date Blaine Villarreal MD [facility] [address] [place] [id number] PCP - General Family Medicine 03/10/20
--- OUTSIDE RECORDS SUMMARY | 2024-12-19 10:14 | XMS_ITS | Referral Summary ---
Author Organization [address] Address [address] [place] [phone] Care Team Providers Care Batch Analyst Name Role Phone Blaine Villarreal MD Primary Care Provid er Encounters Date Type Department Care Team Description 11/20/2024 10:45 AM CDT Office Visit [facility] [address] [place] [address] Dee Ordoñez NP Acute bilateral thoracic back pain (Primary Dx); Chronic otitis media of right ear with effusion; Generalized anxiety disorder with panic attacks 10/26/2024 Results Follow-Up [address] [phone] Addie Aguilar DO Pap and High Risk HPV and Genotyping (Cytology Component) 10/21/2024 8:00 AM CDT Telemedicine [facility] Medical [facility] Virtual Care [address] [place] [phone] Beronica Morel NP Anxiety (Primary Dx); Medication management 10/19/2024 11:05 AM CDT - 10/19/2024 11:59 PM CDT Hospital Encounter [facility] 1 [facility] [address] [place] [phone] Screen for sexually transmitted diseases; Screening for malignant neoplasm of cervix Discharge Disposition: Discharge to home or self care 10/19/2024 Patient Self-Triage [facility] [address] [place] [phone] Mychart, Generic Provider 10/19/2024 10:30 AM CDT Office Visit [facility] [address] [phone] Addie Aguilar DO Encounter for annual routine gynecological examination (Primary Dx); Screen for sexually transmitted diseases; Screening for malignant neoplasm of cervix; PCOS (polycystic ovarian syndrome); Sexual dysfunction 10/12/2024 Patient Self-Triage [facility] [address] [place] [phone] Mychart, Generic Provider 10/12/2024 Patient Self-Triage [facility] [address] [place] [phone] Mychart, Generic Provider 10/05/2024 10:00 AM CDT Telemedicine [address] [phone] Irma Ch NP Pneumonia of left upper lobe due to infectious organism (Primary Dx); Leukocytosis, unspecified type; Acute suppurative otitis media of both ears without spontaneous rupture of tympanic membranes, recurrence not specified; Former cigarette smoker 10/03/2024 7:38 AM CDT - 10/03/2024 11:23 AM CDT Emergency [facility] Emergency Department 1 [place] [address] Krystyna Duggan MD Pneumonia of left upper lobe due to infectious organism (Primary Dx); Leukocytosis, unspecified type Discharge Disposition: Discharge to home or self care 09/30/2024 2:30 PM CDT Office Visit [facility] [address] [place] [phone] Argenis Bermudez NP Acute otitis media (Primary Dx); Acute otitis externa of both ears, unspecified type; Shortness of breath from Last 3 Months Allergies Active Allergy Reactions Criticality Noted Date [...] 07/16/2023 Assessment & Plan (07/16/2023 9:13 AM SHIP PROPELLER FINISHER): The patient presents with snoring and excessive daytime hypersomnia. I have recommended proceeding with a nocturnal polysomnogram with a split night protocol if necessary and no MSLT. She will follow up here in 3 months. Epistaxis 06/21/2023 Chronic tympanomastoiditis, right 06/19/2022 Generalized abdominal pain 05/07/2022 Assessment & Plan (05/07/2022 1:04 PM SHIP PROPELLER FINISHER): Lower abdominal pain for the past 5-6 [...] 05/07/2022 Assessment & Plan (05/07/2022 1:01 PM SHIP PROPELLER FINISHER): Has over 10 BM/day, mainly in the [...] 05/07/2022 Assessment & Plan (05/07/2022 1:02 PM SHIP PROPELLER FINISHER): Chronic heartburn, worsening despite omeprazole 40 mg p.o. daily. Takes Tums as needed. -EGD as above -continue PPI daily -RECOMMENDATIONS given include: anti-reflux maneuvers, Avoid acidic foods like oranges and tomatoes., avoidance of spicy foods, avoid eating 3-4 hours before bed, elevation of the head of the bed, and weight loss Right ear pain 05/04/2022 Assessment & Plan (05/04/2022 10:34 PM SHIP PROPELLER FINISHER): CT Temporal bone Plan Otology referral based on CT results Warm compresses to right sided of neck and jaw, soft foods Chronic otitis media of right ear with effusion 02/16/2022 Assessment & Plan (05/04/2022 2:05 PM SHIP PROPELLER FINISHER): CT Temporal bone Plan Otology referral based [...] Call if no improvement in one month Immunizations Immunization Administration Dates Next Due Influenza, Unspecified 03/25/2024(Deferr ed: Patient Refused),03/17/2023(Deferred: Patient Refused),01/26/2022(Deferred: Patient Refused),08/07/2021(Deferred: Patient Refused),03/17/2021(Deferred: Patient Refused),03/03/2021(Deferred: Patient Refused),03/30/2020(Deferred: Patient Refused),03/17/2020(Deferred: Patient Refused),03/17/2020(Deferred: Patient Refused) Pfizer SARS-CoV-2 Monovalent Vaccination (12+ Yrs) PURPLE 10/22/2020,09/27/2020 Tdap 09/29/2022,05/23/2019 Social History Tobacco Use Types Packs/Day Years Used Date Smoking Tobacco: Former Cigarettes 2 - 2019 Smokeless Tobacco: Never Tobacco Cessation:Counseling Given: [...] on file Legal Sex Female 12:39 PM SHIP PROPELLER FINISHER Gender Identity Female 02/20/2021 6:24 PM CDT Sexual Orientation Not on file Occupation Industry Job Start Date Job End Date Not on file Not on file Not on file Not on file Last Filed Vital Signs Vital Sign Reading [...] 11/20/2024 10:47 AM CDT Plan of Treatment Not on file Procedures Procedure Name Priority Date/Time Associated Diagnosis [...] glucose LIPID PANEL Routine 06/28/2023 8:13 AM SHIP PROPELLER FINISHER Screening for lipid disorders COLONOSCOPY 08/15/2022 8:12 AM SHIP PROPELLER FINISHER from Last 3 Months or Most Recently Relevant to Health Maintenance Results * High Risk HPV DNA Detection with Genotyping (Molecular component) (10/19/2024 11:05 AM CDT) HPV HR 16 Not Detected Not Detected [facility] Comment:Testing performed by : [facility], 1 [facility] [place] [address] HPV HR 18 Not Detected Not Detected [facility] Comment:Testing performed by : [facility], 1 [facility], [place]., [address] HPV HR Non 16/18 Not Detected Not [...] this test have been verified by the [facility] Molecular Infectious Disease laboratory. Correlate with separately reported cytology results, as applicable. Interpretive data last revised 22 Testing performed by: [facility], [address] [place] [address]., [address] Endocervical 10/19/2024 11:0 5 AM CDT 10/20/2024 3:52 PM CDT Narrative [facility] - 10/21/2024 3:52 AM CDT Clinical history and diagnosis->Liquid-based PAP test with high risk HPV test- Z12.4 Number of vials->1 Testing type->Screening Last menstrual period (date if known)->09/21/24 Addie Aguilar DO LAB BODY FLUIDS AND STO OLS ORDERABLES Final Result [facility] [address] [address] [place] [address] [facility] * N. gonorrhoeae/C. trachomatis Amplification Thin prep-Endocervical (10/19/2024 11:05 AM CDT) C. trachomatis Not Detected [facility] Comment:Testing performed by : [facility], [address] [place] [address]., [address] N. gonorrhoeae Not Detected [facility] CHAIREZ Comment: Interpretive Data This assay detects Chlamydia trachomatis and Neisseria gonorrhoeae by nucleic acid amplification testing (NAAT). This assay has been cleared by the [place] Food and Drug administration. The performance characteristics of this test have been verified by the [facility] Molecular Infectious Disease laboratory. The performance characteristics of this test have not been evaluated in individuals less than 14 years of age. Current Interpretive Data was last revised on 2023. Testing performed by: [facility], [address] [place]., [address] Thin prep-Endocervica l 10/19/2024 11:05 AM CDT 10/20/2024 3:52 PM CDT Addie Aguilar LAB MICROBIOLOGY - GENE RAL ORDERABLES Final Result Performing Organization Address [facility] Co de Phone Number [facility] [address] [address] [address] BJ * Trichomonas vaginalis PCR Thin prep-Endocervical (10/19/2024 11:05 AM CDT) Pathologist [facility] Trichomonas DNA Not Detected [facility] Comment: Interpretive Data This assay detects Trichomonas vaginalis by nucleic acid amplification testing (NAAT). This assay has been cleared by the [place] Food and Drug administration. The performance characteristics of this test have been verified by the [facility] Molecular Infectious Disease laboratory. The performance of this test has not been evaluated in individuals less than 18 years of age. Current Interpretive Data was last revised on 2023. Testing performed by: [facility], [address] [place]., [address] Thin prep-Endocervica l 10/19/2024 11:05 AM CDT 10/20/2024 3:52 [address]ie Aguilar [facility] MICROBIOLOGY - GENE RAL ORDERABLES Final Result Performing Organization Address City/[facility] Co de Phone Number [facility] [address] [address] [place] [address] BJ * Pap and High Risk HPV and Genotyping (Cytology Component) (10/19/2024 10:20 AM CDT) Thin prep (Pap test) 10/19/2024 10:20 AM CDT 10/19/2024 10:20 AM CDT Narrative PATHOLOGY CH - 10/23/2024 10:03 AM CDT [facility] Department of Pathology [address] [place] [address] Final Report with Addendum Note to Patients: [...] the details. Patient Name: KASI ADLER Address: [address] [place] [phone] Gender: F : 1990 (Age: 34) Service: Location: [facility] #: [id number] Patient Type: PENDING SALE TO [facility] SPECIMEN Taken: 10/19/2024 Received: 10/19/2024 Accessioned:: 10/20/2024 [...] this test have been verified by the [facility] Molecular Infectious Disease laboratory. Correlate with reported [...] determined by the Surgical Pathology Department at [facility] as part of an ongoing quality control head program and in compliance with federally mandated [...] characteristics determined by the Surgical Pathology Department [facility]. It has not been cleared or approved by the U. S. Food and Drug Administration. Addie Aguilar DO LAB CYTOLOGY ORDERABLES Final Result PATHOLOGY MIHAELA [address] [place] [address] * CT Chest PE (CTA) W Contrast [...] Blayne Fonseca M.D. KR: TESSY Report ID: [id number] Reading Location: [id number] Procedure Note Blayne Fonseca MD - 10/03/2024 [...] Electronically signed by Blayne Fonseca M.D. KR: KR Report ID: [id number] Reading Location: [id number] Krystyna Duggan MD IMG CT PROCEDURES F inal Result * Sepsis Lactate w/ Reflex (10/03/2024 9:15 AM CDT) Sepsis Lactate 1.4 0.7 - 2.0 mmol/L Blood 10/03/2024 9:15 AM CDT 10/03/2024 9:20 AM CDT Krystyna Duggan MD LAB BLOOD ORDERABLE S Final Result [facility] ([place]) [facility] [place] [address] * Blood culture Blood Peripheral (10/03/2024 9:15 AM CDT) Report Final Report: No growth Comment:Testing performed by : [facility], 1 [place]., [address] Blood (Peripheral) 10/03/2024 9:15 AM CDT 10/03/2024 [...] performance characteristics have been verified by the [facility] Microbiology Laboratory. For questions about this culture, contact the Microbiology Laboratory at [phone]. Interpretive data was last revised on 24. Krystyna Duggan MD LAB MICROBIOLOGY - GENERAL ORDERABLES Final Result [facility] ([place]) 1 [facility] [place] [address] * Blood culture Blood Peripheral (10/03/2024 9:15 AM CDT) Report Final Report: No growth Comment:Testing performed by : [facility], [address] [facility] [place] [address] Blood (Peripheral) 10/03/2024 9:15 AM CDT 10/03/2024 [...] performance characteristics have been verified by the [facility] Microbiology Laboratory. For questions about this culture, contact the Microbiology Laboratory at [phone]. Interpretive data was last revised on 24. us Krystyna Duggan MD LAB MICROBIOLOGY - GENERAL ORDERABLES Final Result [facility] ([place]) 1 [facility] [place] [address] * XR Chest PA Lateral 2 Views [...] Hiram Kang M.D. MF: SINAN Report ID: [id number] Reading Location: [id number] Procedure Note Hiram Kang, DO - 10/03/2024 [...] Hiram Kang M.D. MF: SINAN Report ID: [id number] Reading Location: [id number] us Krystyna Duggan MD IMG XR PROCEDURES F inal Result * Troponin T high-sensitivity series (baseline, 2hr, 4hr, 6hr) (10/03/2024 7:52 AM CDT) Trop T hs <6 <=14 ng/L Comment: Interpretive Data For further hscTnT resources including the diagnostic algorithm and an aid in interpretation, copy and paste this link: https://nrl.testcatalog.org/show/hsTrop Current Interpretive Data last revised 2020. Blood 10/03/2024 7:52 AM CDT 10/03/2024 7:56 AM CDT us Krystyna Duggan MD LAB BLOOD ORDERABLE S Final Result [facility] PENDING S[facility] [place]) 3 [facility] [place] [address] * eGFR (10/03/2024 7:52 AM [...] of Race in Diagnosing Kidney Disease, JASN 2021). The CKD-EPI equation should not be used for patients with unstable renal function and has not been validated in children and those over 70. Current interpretive data was last reviewed 2021. Blood 10/03/2024 7:52 AM CDT 10/03/2024 7:56 AM CDT us Krystyna Duggan MD LAB BLOOD ORDERABLE S Final Result [facility] ([place]) 1 [facility] [place] [address] * (ABNORMAL) Differential, auto (10/03/2024 7:52 AM CDT) Neutrophil abs 14.01(H) 1.50 - 6.50 K/cumm Imm gran abs 0.08 0.00 - 0.10 K/cumm [facility] ([place]) Lymphocyte abs 2.67 0.80 - 3.30 K/cumm [facility] ([place]) Monocyte abs 0.57 0.20 - 0.80 K/cumm [facility] ([place]) Eosinophil abs 0.19 0.00 - 0.50 K/cumm [facility] ([place]) Basophil abs 0.05 0.00 - 0.10 K/cumm [facility] ([place]) Neutrophil pct 79.7 % [facility] ([place]) Comment: Interpretive Data Percent cell count reference ranges are not reported, since discordance with absolute values may lead to misinterpretation of CBC data. Current Interpretive Data was last revised on 2017. Imm gran pct 0.5 % [facility] ([place]) Comment: Interpretive Data [...] MD LAB BLOOD ORDERABLE S Final Result [facility] ([place]) 1 [facility] [place] [address] * (ABNORMAL) CBC with auto differential (10/03/2024 [...] (JAKE) MCHC 32.8 32.3 - 35.7 g/dL [facility] ([place]) RDW CV 13.3 11.1 - 14.9 % [facility] ([place]) RDW SD 42.4 35.7 - 48.1 fL [facility] ([place]) NRBC abs 0.00 0.00 - 0.01 K/cumm [facility] PENDING S[facility] ([place]) Blood Venous blood specimen / Unknown 10/03/2024 7:52 AM CDT 10/03/2024 7:56 AM CDT Krystyna Duggan MD LAB BLOOD ORDERABLE S Final Result Performing Organization Address City/[facility]/ZIP Co de Phone Number [facility] ([place]) [address] [facility] [place] [address] * Protime-INR (10/03/2024 7:52 AM CDT) PT 11.2 9.7 - 13.0 sec [facility] PENDING [facility] ([place]) INR 1.04 0.90 - 1.20 [facility]ENDING [facility] ([place]) Comment: Interpretive data Oral anticoagulant therapeutic ranges: Venous thromboembolism prophylaxis or treatment: 2.0-3.0 CARDIOLOGY Standard range: 2.0-3.0 High-intensity range: 2.5-3.5 Refer to indication-specific guidelines for appropriate target ranges for prosthetic heart valve replacement. Current interpretive data was last revised on 2019. Blood 10/03/2024 7:52 AM CDT 10/03/2024 8:58 AM CDT Krystyna Duggan MD LAB BLOOD ORDERABLE S Final Result Performing Organization Address City/State/[facility] Co de Phone Number [facility] ([place]) [address] [facility] [place] [address] * Comprehensive metabolic panel (10/03/2024 7:52 AM CDT) Sodium 138 135 - 145 mmol/L Potassium, pl 4.1 3.3 - 4.9 mmol/L [facility] ([place]) Chloride 102 97 - 110 mmol/L [facility] ([place]) CO2 23 22 - 32 mmol/L [facility] ([place]) Anion gap 13 2 - 15 [...] classification and Diagnosis of Diabetes Diabetes Care 202; 46: S19-S40. Current interpretive data was last [...] (JAKE) Comment:Slightly Hemolyzed S pecimen Blood 10/03/2024 7:52 AM CDT 10/03/2024 7:56 AM CDT us Krystyna Duggan MD LAB BLOOD ORDERABLE S Final Result [facility] ([place]) 1 [facility] Department of Laboratories [place], [place] [id number] * ECG 12 lead (10/03/2024 7:43 AM CDT) 10/03/2024 7:43 AM CDT Narrative [facility] - 10/05/2024 6:41 AM CDT Vent Rate: 103 bpm RR Interval: 582 msec TN Interval: 156 msec QRS Duration: 85 msec QT Interval: 337 msec QTC Interval: 396 msec P-R-T [place]: 41 - 50 - 61 degrees IMPRESSION: SINUS TACHYCARDIA POOR R WAVE PROGRESSION ABNORMAL RHYTHM ECG Electronically Signed By: John Field MD Krystyna Duggan MD ECG ORDERABLES Fin al Result [facility] * DIABETES EYE EXAM (04/03/2024) SCRIBED DIABETIC DILATED EYE EXAM Normal Kaleb Moses MD HEALTH MAINTENANCE Final Result * (ABNORMAL) Hemoglobin A1c (02/25/2024 10:38 AM CDT) Hgb A1C 7.5(H) 4.0 - 5.6 % Comment:Testing performed by : [address] [address] Estimated Average Glucose 169 mg/dL [facility] RICH Comment: The ADA recommends reporting an estimated Average Glucose (eAG) with all Hemoglobin A1c results using the equation derived from a study of 507 normal and diabetic adults. Minority populations were underrepresented and children were not included. (Diabetes Care 31:2216-9161, 2008). The eAG is not equivalent to a fasting glucose. Testing performed by: [address] [address] Blood 02/25/2024 10:3 8 AM CDT 02/25/2024 12:08 PM CDT Blaine Villarreal MD LAB BLOOD ORDERABLES Final Result Performing Organization Address City/[facility]/ZIP Co de Phone Number [facility] [address] [facility] Department [place] [address] * (ABNORMAL) Lipid panel (06/28/2023 8:13 AM SHIP PROPELLER FINISHER) Cholesterol 209(H) 30 - 199 mg/dL [facility] [...] last revised on 2018. Testing performed by: [facility], [address] [place] [address]., [address] Triglycerides 280(H) <=149 mg/dL [facility] ([place]) Comment: Interpretive Data Ages < or [...] last revised on 2018. Testing performed by: [facility], [address] [place] [address]., [address] HDL 36(L) >=40 mg/dL [facility] ([place]) Comment: Interpretive Data Ages < or [...] last revised on 2018. Testing performed by: [facility], [address] [place] [address]., [address] LDL, calculated 117 <=129 mg/dL [facility]ON [...] last revised on 2018. Testing performed by: [address] [address] Non-HDL Cholesterol 173 mg/dL [facility] ([place]) [...] last revised on 2018. Testing performed by: [address] [address] Chol/HDL ratio 6 [facility] ([place]KE) Comment:Testing performed by : [address] [address] Blood 06/28/2023 8:13 AM SHIP PROPELLER FINISHER 06/28/2023 11:53 AM SHIP PROPELLER FINISHER Blaine Villarreal MD LAB BLOOD ORDERABLES Final Result [facility] ([place]) 1 [facility] [place] [address] * COLONOSCOPY (08/15/2022 8:12 AM SHIP PROPELLER FINISHER) Anatomical Region Laterality Modality Other Narrative Procedure Note Zan Bishop MD - 08/15/2022 8:12 AM CST [facility] ER GI ENDOSCOPY Patient Name: Kasi Adler Procedure Date: 08/15/2022 8:12 AM Date of : 1990 Admit Type: Outpatient Age: 32 Gender: Female Attending MD: Zan Bishop M.D. Room: [facility] ENDOSCOPY ROOM 06 Note Status: Finalized Procedure: [...] The scope was passed under direct vision.The [id number]-[id number] colonoscope was introduced through theanus and advanced [...] On: 08/15/2022 8:12 AM Recognized by the [employer] [employer] for promoting quality in endoscopy Zan Bishop MD ENDOSCOPY PROCEDURES Final Resul t from Last 3 Months or Most Recently Relevant to Health Maintenance Insurance AETNA SIG [id number] AETNA SIG [id number] Care Teams Batch Analyst Relationship Specialty Start Date End Date Blaine Villarreal MD [facility] [address] [place] [address] PCP - General Family Medicine 03/10/20
--- OUTSIDE RECORDS SUMMARY | 2024-12-19 10:14 | XMS_ITS | Clinical Summary ---
Author Organization [facility] Address [address] [place] [address] Care Team Providers Care Director Mba Name Role Phone Blaine Villarreal MD Primary Care Provider + [phone] Source Comments [facility]non-owned Affiliates and Associated Physician Practices is amultiple site organization consisting of ambulatory clinics and hospital sitesin [place], [place], [place] and [place]. This disclosure is being madepursuant to the Care Everywhere program and may not contain all information available regarding this patient. Last updated 18.[facility] Allergies No known active allergies Medications * Be aware that medications may not be up to date on this document. Alwaysverify current medications with the patient. hyoscyamine SL (LEVSIN SL) 0.125 MG tablet Take 0.125 mg by mouth 03/28/2020 Active Immunizations Immunization Administration Dates Next Due TDAP (7yrs+) 05/23/2019 Family History Medical History Relation Name Comments Cancer - Other Mother skin cancer Thyroid Disease Mother Relation Name Status Comments Father Other unknown health hx Mother Social History Tobacco Use Types Packs/Day Years Used Date Smoking Tobacco: Never Smokeless Tobacco: Never Tobacco Cessation:Counseling Given: Yes Alcohol Use Standard Drinks/Week Comments No 0 (1 standard drink = 0.6 oz pur e alcohol) Comments No Sex and Gender Information Value Date Recorded Sex Assigned at Not on file Legal Sex Female 5:47 PM DEFENSE ANALYST Gender Identity Female 05/17/2021 6:11 PM DEFENSE ANALYST Sexual Orientation Not on file Last Filed Vital Signs Vital Sign Reading Time Taken Comments Blood Pressure 136/85 04/29/2020 2:33 PM DEFENSE ANALYST Pulse 91 04/29/2020 2:33 PM DEFENSE ANALYST Temperature 36.8 C (98.2 F) 04/29/2020 2:33 PM DEFENSE ANALYST Respiratory Rate 16 03/10/2020 9:36 AM CDT Oxygen Saturation 98% 03/10/2020 9:36 AM CDT Inhaled Oxygen Concentration - - Weight 105.1 kg (231 lb 9.6 oz) 04/29/2020 2:33 PM DEFENSE ANALYST Height 160 cm (5' 3) 04/29/2020 2:33 PM DEFENSE ANALYST Body Mass Index 41.03 04/29/2020 2:33 PM DEFENSE ANALYST Plan of Treatment Health Maintenance Due Date Last Done Comments HIV SCREENING 2004 HEPATITIS C SCREENING 05/02/2007 HEPATITIS B VACCINE (1 of 3 - 19+ 3-dose series) 2008 PAP SMEAR 2010 COVID-19 VACCINE ( - 2023-2 5 season) 2024 DEPRESSION SCREENING 06/17/2024 INFLUENZA VACCINE (Season Ended) 2025 DTAP/TDAP/TD VACCINES (2 - T d or Tdap) 05/23/2029 05/23/2019 ZOSTER VACCINE (1 of 2) 2039 HIB VACCINE Aged Out No longer eligi ble based on patient's age to complete this topic HPV VACCINE Aged Out No longer eligi ble based on patient's age to complete this topic MENINGOCOCCAL (Group B) VACC INE SHARED DECISION-MAKING Aged Out No longer eligibl e based on patient's age to complete this topic MENINGOCOCCAL GROUPS A/C/Y/W VACCINE Aged Out No longer eligible b ased on patient's age to complete this topic PNEUMOCOCCAL VACCINE Aged Out No long er eligible based on patient's age to complete this topic Insurance [facility] [employer] Care Teams Director Mba Relationship Specialty Start Date End Date Blaine Villarreal MD PCP - General 04/24/20
[2024-12-19 10:20] VITALS: BP 146/82; PULSE 86; RESP 18; TEMP 36.7; O2SAT 99
--- NOTE | 2024-12-19 10:31 | ED.EYEPROB ---
HPI - Eye Problem General Chief complaint: Eye Problems Stated complaint: Left Eye Swelling Patient presents to the [facility] accompanied by family with complaints of swelling to left upper eyelid that began last night and noted was worse this morning. Patient reports she was at a 17 [place] [employer] party yesterday but denies anything new or different that she came in contact with. Patient denies any redness, draining, matting, or pain to the eyeball itself. no medication her remedies attempted her symptoms. Denies cold symptoms, fever, chills body aches, vision changes, headache, or dizziness. Related Data Home Medications ?Medication ?Instructions ?Recorded ?Confirmed ?Last Taken ?Type clonazepam 0.5 mg tablet 0.5 mg PO DAILY 01/11/22 05/13/23 Unknown History omeprazole 40 mg capsule,delayed 40 mg PO DAILY 01/11/22 05/13/23 Unknown History release albuterol sulfate 90 mcg/actuation inhalation 12/19/24 Unknown History aerosol inhaler carbidopa 25 mg-levodopa 100 mg tablet 12/19/24 Unknown History tablet cyclobenzaprine 10 mg tablet mg 12/19/24 Unknown History fluoxetine 40 mg capsule mg 12/19/24 Unknown History gabapentin 300 mg capsule mg 12/19/24 Unknown History semaglutide 1 mg/dose (4 mg/3 mL) mg subcut 12/19/24 Unknown History subcutaneous pen injector (Ozempic) trazodone 50 mg tablet mg 12/19/24 Unknown History Allergies Allergy/AdvReac Type Severity Reaction Status Date / Time colestipol Allergy Intermediate Hives Verified 12/19/24 10:23 Milk Containing Products Allergy Intermediate Hives Verified 12/19/24 10:23 (Dairy) shellfish derived Allergy Intermediate Hives Verified 12/19/24 10:23 Review of Systems Constitutional: Constitutional: Reports as per HPI, Denies chills, Denies fatigue, Denies fever(s) and Denies weakness Eyes: Eyes: Reports as per HPI, Denies change in vision and Denies photophobia Comments: Swelling left upper eyelid ENT: Reports as per HPI, Denies dysphagia, Denies vertigo, Denies dizziness, Denies epistaxis, Denies nasal congestion and Denies sore throat Cardiovascular: Cardiovascular: Reports no additional cardiovascular complaints Respiratory: Respiratory: Reports no additional respiratory complaints Gastrointestinal: Gastrointestinal: Reports no additional gastrointestinal complaints Genitourinary: Genitourinary: Reports no additional female genitourinary complaints Musculoskeletal: Musculoskeletal: Reports no additional musculoskeletal complaints Integumentary/Breasts: Skin/Breast: Reports as per HPI, Denies pruritus, Denies erythema, Denies rash and Denies skin ulcer Comments: swelling left upper eyelid Neurologic: Reports as per HPI, Denies numbness and Denies weakness Psychiatric: Psychiatric: Reports no additional psychiatric complaints Endocrine: Endocrine: Reports no additional endocrine complaints Hematologic/Lymphatic: Hematologic/Lymphatic: Reports no additional hematologic/lymphatic complaints Allergic/Immunologic: Allergic/Immunologic: Reports as per HPI, Denies lip swelling, Denies throat swelling, Denies tongue swelling and Denies wheezing PMFSH Past Medical History Medical History (Updated 12/19/24 @ 10:49 by BENEDICT Luna-C) Hearing impairment Hearing loss in right ear Fatty liver Anxiety and depression GERD (gastroesophageal reflux disease) Irritable bowel syndrome Surgical History Surgical History History of ear surgery right History of tympanoplasty History of tympanostomy tube placement Family History Family History Mother Family history non-contributory Social History Social History Smoking status: Never smoker Alcohol intake: current Alcohol use details: ? Substance use type: does not use Living arrangements: with family Gender identity (if verbalized by the patient): Female Exam Const: General: healthy appearing and no acute distress Nutritional Appearance: well nourished Orientation/consciousness: patient oriented x3 Limitations: no limitations HENMT: Head: normal to inspection Ears: external ears normal and TM's normal bilaterally Face/Nose/Sinus: Normal external nose present and Normal nares present Face and sinus: abnormal facial exam and sinuses nontender Mouth: Yes Normal oral and palatal mucosa present, Yes lip normal and Yes moist mucous membranes Throat: posterior oropharynx normal Eyes: Conjunctivae: conjunctivae normal Pupils: Equal, round and reactive pupils present EOM: EOMs intact bilaterally Direct Ophthalmoscopy: no photophobia Other: diffuse swelling left upper eyelid, no redness, rash, open wounds noted. Neck: Neck: no lymphadenopathy Resp: Effort & Inspection: normal respiratory effort Auscultation: clear to auscultation bilaterally Cardio: Rate: regular rate Rhythm: regular rhythm Skin: General skin exam: normal color Rashes: no rashes Wounds: no wounds Neuro: General: patient oriented x3 Cranial nerves: Yes Nystagmus not present Speech: normal speech Gait exam (Neuro): Normal gait present Psych: Mental Status: mental status grossly normal Affect: normal affect Attitude: cooperative Course Course Level of Care: Express Care Visit Vital Signs Vital signs: Vital Signs Temperature 98.1 F 12/19/24 10:20 Pulse Rate 86 12/19/24 10:20 Respiratory Rate 18 12/19/24 10:20 Blood Pressure 146/82 H 12/19/24 10:20 Pulse Oximetry 99 12/19/24 10:20 Oxygen Delivery Room Air 12/19/24 10:20 Temperature 98.1 F 12/19/24 10:20 Pulse Rate 86 12/19/24 10:20 Respiratory Rate 18 12/19/24 10:20 Blood Pressure 146/82 H 12/19/24 10:20 Pulse Oximetry 99 12/19/24 10:20 Oxygen Delivery Room Air 12/19/24 10:20 MDM - Eye Problem MDM Narrative Medical decision making narrative: Probable reaction to something she came in contact with. No signs of conjunctivitis. Discharge instructions reviewed with patient, as well as provided in writing per nursing staff. The instructions also include specific and strict return/GO TO THE ER as well as f/u information. All questions have been answered, and the patient deny any further questions with discharge and discharge plan. Differential Diagnosis Differential diagnosis: Likely corneal abrasion, conjunctivitis, acute iritis, periorbital cellulitis, subconjunctival hemorrhage and corneal ulcer Medical Records Attestation: I reviewed the patient's medical records. Discharge Plan Discharge Clinical Impression: Allergic dermatitis eyelid Patient Disposition: Home Condition: Stable Instructions: Antibiotic Form, Eyelid Swelling (ED) Additional Instructions: Take the steroid pack as directed. Use compresses to the area several times per day to help with swelling Take antihistamines like Claritin, Amanda, or Zyrtec daily. If he began to notice drainage, matting, or redness to the eye follow-up with primary care for further evaluation. Patient Language: [place] Citizen Prescriptions: New methylprednisolone [Medrol (Kana)] 4 mg tablets,dose pack See Rx Instructions .ROUTE .COMPLEX Qty: 21 0RF Rx Instructions: for 6 days No Action fluoxetine 40 mg capsule cyclobenzaprine 10 mg tablet trazodone 50 mg tablet gabapentin 300 mg capsule albuterol sulfate 90 mcg/actuation HFA aerosol inhaler INHALATION carbidopa-levodopa 25-100 mg tablet Ozempic 1 mg/dose (4 mg/3 mL) pen injector SUBCUT clonazepam 0.5 mg tablet 0.5 mg PO DAILY omeprazole 40 mg capsule,delayed release(DR/EC) 40 mg PO DAILY Follow-up/Referrals: PHYSICIAN,INCOME TAX ADVISOR [Primary Care Provider] - Time of Disposition: 10:49
== END 2024-12-19 10:53 | disposition home or self-care (01) ==
PROVIDERS: Emergency Provider Nurse Practitioner Family
DX: H01.114 Allergic dermatitis of left upper eyelid (principal); K76.0 Fatty (change of) liver, not elsewhere classified; K21.9 Gastro-esophageal reflux disease without esophagitis; F41.9 Anxiety disorder, unspecified
CPT/HCPCS: 99213; G0463